=== PATIENT | female | born 2005 | race Two or more races ===

== ENCOUNTER 2025-09-18 18:20 | Emergency (ER) | payer OTHER ==
[~2025-09-18] VITALS: Ht 167.6 cm; Wt 124.7 kg
[2025-09-18] MEDS: KETOROLAC TROMETHAMINE 15 MG/ML VIAL IV ONE (18:30)
[2025-09-18] MEDS ORDERED: KETOROLAC TROMETHAMINE 15 MG/ML VIAL ONE (19:30)
[2025-09-18] MEDS ORDERED: NAPR-1164 PO (20:46)
[2025-09-18 20:54] VITALS: BP 124/81; TEMP 97.6; O2SAT 99
== END 2025-09-18 20:54 | disposition home or self-care (01) ==
LOC: ER 18:46
DX: M22.02 Recurrent dislocation of patella, left knee (principal)
CPT/HCPCS: 29505; 73564; 96374; 99283; J1885